=== PATIENT | male | born 1970 | race Hispanic/Latino ===

== ENCOUNTER 2020-05-12 10:16 | Outpatient (CLI) | payer OTHER ==
--- NOTE | 2020-05-12 11:30 | CT ---
CT OF THE ABDOMEN AND PELVIS WITH IV CONTRAST INDICATION: Epigastric abdominal pain COMPARISON: None FINDINGS: ABDOMEN: Lung bases: There is a 2 cm right infrahilar lymph node. Lung bases are clear. Liver: There is mild fatty infiltration of the liver near the falciform ligament. Gallbladder: Normal appearing. Pancreas: Normal. Adrenal glands: Normal. Spleen: Normal. Kidneys and ureters: Normal. No hydronephrosis. Vasculature: There are mild vascular calcifications seen involving the visualized vasculature. Lymph nodes:No lymphadenopathy. Free fluid in abdomen:No free fluid is evident. PELVIS: Small and large bowel: There are scattered diverticula involving the colon without evidence of active diverticulitis. Small bowel is of normal caliber. Appendix:Normal Bladder: Normal. Rectal and perirectal soft tissues:Normal. Reproductive structures: Normal. Free fluid in pelvis: No free fluid is evident. Lymphadenopathy pelvis: No lymphadenopathy is evident. Osseous structures: No acute osseous abnormality. No destructive osteolytic or osteoblastic lesion i s identified. There is scattered degenerative and osteoarthritic changes. Soft tissues:Incidental note is made of bilateral hydroceles within the visualized upper scrotum. The re is a small fat-containing umbilicus hernia. IMPRESSION: 1. No CT explanation for the patient's epigastric abdominal pain. 2. Incidental note of a 2 cm right infrahilar lymph node. Follow-up CT of the thorax utilizing IV con trast is recommended for evaluation for additional stations of lymphadenopathy and further characterization. 3. Colonic diverticulosis without evidence of active diverticulitis. 4. Bilateral scrotal hydroceles
== END 2020-05-12 10:17 | disposition home or self-care (01) ==
LOC: SCSCT 10:16
PROVIDERS: ATTEND Specialist
DX: R10.13 Epigastric pain (principal); K57.30 Diverticulosis of large intestine without perforation or abscess without bleeding; N43.3 Hydrocele, unspecified
CPT/HCPCS: 74177

== ENCOUNTER 2020-11-16 14:22 | Outpatient (CLI) | payer OTHER | END 2020-11-16 14:23 | disposition home or self-care (01) | LOC: SCSRAD 14:22 | PROVIDERS: ATTEND Podiatrist | DX: M79.671 Pain in right foot (principal); M79.672 Pain in left foot; M21.42 Flat foot [pes planus] (acquired), left foot; M77.31 Calcaneal spur, right foot; M18.0 Bilateral primary osteoarthritis of first carpometacarpal joints ==